=== PATIENT | female | born 1970 | race Caucasian/White ===

== ENCOUNTER 2022-12-13 21:12 | Emergency (ER) | payer BC ==
[2022-12-13] MEDS ORDERED: Ibuprofen 800 MG TAB ONE (21:45)
[2022-12-13] MEDS ORDERED: HYDROcodone/Acetaminophen 5/325 mg Tablet ONE (22:49)
== END 2022-12-14 00:43 | disposition home or self-care (01) ==
LOC: MADERS 21:12
DX: S52.591A Other fractures of lower end of right radius, initial encounter for closed fracture (principal); W52.XXXA Crushed, pushed or stepped on by crowd or human stampede, initial encounter

== ENCOUNTER 2025-05-02 09:55 | Emergency (ER) | payer BC ==
[2025-05-02] MEDS ORDERED: Ondansetron PF 4 MG/2 ML Vial ONE (10:17)
[2025-05-02] MEDS ORDERED: HYDROcodone/Acetaminophen 10/325 mg Tablet ONE (11:45)
[2025-05-02] MEDS ORDERED: HYDROmorphone 0.5 MG/0.5 ML SYRINGE ONE ×2 (16:15→20:11)
[2025-05-03] MEDS ORDERED: HYDROmorphone 0.5 MG/0.5 ML SYRINGE ONE (00:15)
== END 2025-05-03 00:39 | disposition short-term general hospital (02) ==
LOC: MADERS 09:55
DX: S42.202A Unspecified fracture of upper end of left humerus, initial encounter for closed fracture (principal); E78.5 Hyperlipidemia, unspecified; W18.49XA Other slipping, tripping and stumbling without falling, initial encounter
CPT/HCPCS: 94760; 96374; 96375; 96376; J1171; J2270